=== PATIENT | female | born 1980 | race Hispanic/Latino ===

== ENCOUNTER 2023-03-24 22:31 | Emergency (ER) | payer OTHER ==
[~2023-03-24] VITALS: Ht 162.6 cm; Wt 113.9 kg
[2023-03-24 23:50] LABS: RAPID GROUP A STREP negative (NEGATIVE)
[2023-03-24 23:56] LABS: SARS-CoV-2, RNA, NAAT NEGATIVE SARS CoV-2 (NEGATIVE)
[2023-03-25] LABS: INFLUENZA TYPE A Negative For Type A (NEGATIVE); INFLUENZA TYPE B Negative For Type B (NEGATIVE)
[2023-03-25] MEDS ORDERED: GUAI400T94 PO (00:53)
[2023-03-25] MEDS ORDERED: BENZ200C53 PO (00:53)
[2023-03-25] MEDS ORDERED: ALBU90AE2 IH (00:53)
[2023-03-25] MEDS ORDERED: AZIT250T9 PO (00:56)
[2023-03-25] MEDS ORDERED: BENZONATATE 100 MG CAPSULE PO ONE (01:00)
[2023-03-25] MEDS ORDERED: GUAIFENESIN 600 MG TABLET.ER PO ONE (01:00)
[2023-03-25 01:04] VITALS: BP 126/77; PULSE 92; RESP 18; O2SAT 98
== END 2023-03-25 01:03 | disposition home or self-care (01) ==
LOC: EDH 22:31
DX: J06.9 Acute upper respiratory infection, unspecified (principal); B34.9 Viral infection, unspecified; E11.9 Type 2 diabetes mellitus without complications; Z20.822 Contact with and (suspected) exposure to COVID-19; Z79.899 Other long term (current) drug therapy; Z98.890 Other specified postprocedural states; Z90.49 Acquired absence of other specified parts of digestive tract; Z88.8 Allergy status to other drugs, medicaments and biological substances
CPT/HCPCS: 99283; 87635; 87880; 87804 ×2; C9803

== ENCOUNTER 2024-06-20 12:57 | Emergency (ER) | payer BC ==
[~2024-06-20] VITALS: Ht 162.6 cm; Wt 113.4 kg
[~2024-06-20 12:57] MED LIST: ALBU90AE3 IH; AZIT250T9 PO; BENZ200C53 PO; GUAI400T94 PO
[2024-06-20 13:19] LABS: BASOPHILS # (AUTO) 0.03 K/uL (0.00-0.20); BASOPHILS % (AUTO) 0.4 % (0.0-5.0); EOSINOPHILS # (AUTO) 0.14 K/uL (0.00-0.70); EOSINOPHILS % (AUTO) 1.9 % (0.0-8.0); HEMATOCRIT 37.6 % (36-48); IMMATURE GRANULOCYTE ABSOLUTE 0.05 K/uL (0-1); LYMPHOCYTES # (AUTO) 2.1 K/uL (1.0-4.8); LYMPHOCYTES % (AUTO) 27.5 % (21.0-51.0); MEAN CORPUSCULAR HEMOGLOBIN 28.4 pg (27.0-33.0); MEAN CORPUSCULAR HGB CONC 31.9 g/dL (32.0-36.0); MEAN CORPUSCULAR VOLUME 88.9 fL (79-99); MONOCYTES # (AUTO) 1.1 K/uL (0.1-1.0); MONOCYTES % (AUTO) 14.9 % (3.0-13.0); NEUTROPHILS # (AUTO) 4.1 K/uL (1.8-7.7); NEUTROPHILS % (AUTO) 54.6 % (40.0-77.0); PLATELET COUNT (AUTO) 273 K/uL (130-400); RED BLOOD CELL COUNT(AUTO) 4.23 MIL/uL (4.00-5.50); RED CELL DISTRIBUTION WIDTH 14.7 % (11.0-15.5); WHITE BLOOD COUNT (AUTO) 7.6 K/uL (4.8-10.8)
[2024-06-20 13:26] LABS: CREATININE 1.1 mg/dL (0.5-1.0); POTASSIUM 3.9 mmol/L (3.5-5.1)
[2024-06-20] MEDS: 0.9%NACL 1000ML 1,000 ML IV ONE (13:32)
[2024-06-20] MEDS: acetaMINOPHEN 500 MG TABLET PO ONE (13:33)
--- NOTE | 2024-06-20 14:09 | ERN ---
General Chief Complaint: Abdominal Pain Stated Complaint: UTI PAIN Time Seen by MD: 12:57 Source: patient History of Present Illness Initial Comments 44-YEAR-OLD FEMALE COMING IN WITH LEFT FLANK IN HIS SUPRAPUBIC DISCOMFORT. SHE STATES THAT SHE WAS DIAGNOSED WITH A URINARY TRACT INFECTION ABOUT A WEEK AND A HALF AGO AND SINCE THEN PROGRESSIVELY HAS BEEN HAVING LEFT FLANK PAIN. FEVER NO CHILLS. Allergies: Coded Allergies: lamotrigine (Unverified Allergy, Unknown, 03/24/23) Home Meds Active Scripts Azithromycin (Azithromycin) 250 Mg Tablet, 250 MG PO DAILY, #6 TAB Take 2 now then 1 daily until complete. Prov:LATYOA ARROYO V [facility] 03/25/23 Guaifenesin (Guaifenesin) 400 Mg Tablet, 400 MG PO TID PRN for COUGH, #30 TAB Prov:LATOYA ARROYO V [facility] 03/25/23 Benzonatate (Benzonatate) 200 Mg Capsule, 200 MG PO TID PRN for COUGH for 14 Days, #42 CAP Prov:LATOYA ARROYO V [facility] 03/25/23 Albuterol Sulfate (Proair Digihaler) 90 Mcg Aer.pw.bas, 90 MCG IH TID, #1 INHALER Prov:LATOYA ARROYO V [facility] 03/25/23 Past Medical History Past Medical History: Bipolar, Diabetes-Type II Past Surgical History: Cholecystectomy, BTL Surgical History Other: TUBAL LIGATION Female( History) LMP: May 31, 2024 ROS Dictation CONSTITUTIONAL: NO CHILLS, NO FEVER, NO WEAKNESS, NO DIAPHORESIS, NO MALAISE. HEAD/FACE: NO SIGNS OF TRAUMA. EENT: NO EYE PAIN, NO BLURRED VISION, NO TEARING, NO DOUBLE VISION, NO EAR PAIN, NO EAR DISCHARGE, NO NOSE PAIN, NO NASAL CONGESTION, NO THROAT PAIN, NO THROAT SWELLING, NO MOUTH PAIN. RESPIRATORY: NO COUGH, NO ORTHOPNEA, NO SOB, NO STRIDOR, NO WHEEZING. CARDIOVASCULAR: NO CHEST PAIN, NO EDEMA, NO PALPITATIONS, NO SYNCOPE. GASTROINTESTINAL/ABDOMINAL: NO ABDOMINAL PAIN, NO CONSTIPATION, NO DIARRHEA, NO NAUSEA, NO VOMITING. GENITOURINARY: NO ABNORMAL DISCHARGE, NO DYSURIA, NO FREQUENT URINATION, NO HEMATURIA. NO COMPLAINTS OF PAIN IN THE GENITALS. MUSCULOSKELETAL: NO BACK PAIN, NO GOUT, NO JOINT PAIN, NO JOINT SWELLING, NO MUSCLE PAIN, NO MUSCLE STIFFNESS, NO NECK PAIN. INTEGUMENTARY: NO CHANGE IN COLOR, NO CHANGE IN HAIR/NAILS, NO DRYNESS, NO LESION, NO LUMPS, NO RASH. NEUROLOGICAL/PSYCH: NO ANXIETY, NOT DEPRESSED, NO EMOTIONAL PROBLEM, NO HEADACHE, NO NUMBNESS, NO PRE-EXISTING DEFICIT, NO HISTORY OF SEIZURES, NO TREMORS, NO WEAKNESS. HEMATOLOGIC/LYMPHATIC: NOT ANEMIC, NO HISTORY OF BLOOD CLOTS, NO APPARENT BLEEDING, NO BRUISING, GLANDS NOT SWOLLEN. ALL SYSTEMS NEGATIVE, EXCEPT NOTED. Physical Exam Physical Exam Dictation VITAL SIGNS: REVIEWED. GENERAL APPEARANCE: ALERT, ORIENTED X3, NO ACUTE DISTRESS, OBESE. HEAD AND FACE: NON-TRAUMATIC. EYES: PERRL, PINK CONJUNCTIVAS, EYELID NO TRAUMA, ANTERIOR CHAMBER CLEAR. EARS: PINNAS INTACT AND NO SIGNS OF TRAUMA OR ERYTHEMA. EAR CANALS CLEAR AND N O DISCHARGE. TMS NO ERYTHEMA. NOSE: NO DISCHARGE, NO BLEEDING. OROPHARYNX: MOUTH NORMAL, TEETH NO CARIES, TONGUE PINK. PHARYNX CLEAR, NO ERYTHEMA. TONSILS NO EXUDATES, NO ABSCESSES NOTED. MUCOUS MEMBRANE MOIST. NECK: SUPPLE, NON-TENDER, NO THYROMEGALY, NO MASSES, NO JVD, NO BRUITS. BREAST: DEFERRED. CHEST: NO TENDERNESS, NO CREPITUS, NO PARADOXICAL MOVEMENT, NO RETRACTIONS. LUNGS: CLEAR, WELL-VENTILATED, SYMMETRIC, NO RALES, NO WHEEZING, NO RHONCHI, NO STRIDOR, GOOD BREATH SOUNDS BILATERALLY. HEART: REGULAR RATE, REGULAR RHYTHM, NO MURMUR, NO GALLOPS. VASCULAR: NO PERIPHERAL EDEMA. ABDOMEN: SOFT, POSITIVE BOWEL SOUNDS, NONDISTENDED, NO GUARDING, NONTENDER, NO REBOUND, NO MASSES NO HEPATOMEGALY, NO SPLENOMEGALY, NO BAJWA'S SIGN, NO HERNIAS. RECTAL: DEFERRED. GENITAL: DEFERRED. NEUROLOGICAL: NORMAL SPEECH, GROSS MOTOR FUNCTION INTACT, GROSS SENSORY FUNCTION INTACT. MUSCULOSKELETAL: NECK NONTENDER, FULL RANGE OF MOTION, BACK NONTENDER, FULL RANGE OF MOTION. EXTREMITIES: NONTENDER, FULL RANGE OF MOTION. SKIN: COLOR PINK, DRY, NO TURGOR, NO RASH, NO LACERATIONS, NO ABRASIONS, NO CONTUSIONS. LYMPHATICS: DEFERRED. Results Laboratory and Microbiology Lab and Micro Result Laboratory Tests Test 06/20/24 13:13 06/20/24 14:39 White Blood Count 7.6 K/uL (4.8-10.8) Red Blood Count 4.23 MIL/uL (4.00-5.50) Hemoglobin 12.0 g/dL (12.0-16.0) Hematocrit 37.6 % (36-48) Mean Corpuscular Volume 88.9 fL (79-99) Mean Corpuscular Hemoglobin 28.4 pg (27.0-33.0) Mean Corpuscular Hemoglobin Concent 31.9 g/dL (32.0-36.0) L Red Cell Distribution Width 14.7 % (11.0-15.5) Platelet Count 273 K/uL (130-400) Mean Platelet Volume 10.0 fL (7.5-10.5) Immature Granulocyte % (Auto) 0.7 % (0-1) Neutrophils (%) (Auto) 54.6 % (40.0-77.0) Lymphocytes (%) (Auto) 27.5 % (21.0-51.0) Monocytes (%) (Auto) 14.9 % (3.0-13.0) H Eosinophils (%) (Auto) 1.9 % (0.0-8.0) Basophils (%) (Auto) 0.4 % (0.0-5.0) Neutrophils # (Auto) 4.1 K/uL (1.8-7.7) Lymphocytes # (Auto) 2.1 K/uL (1.0-4.8) Monocytes # (Auto) 1.1 K/uL (0.1-1.0) H Eosinophils # (Auto) 0.14 K/uL (0.00-0.70) Basophils # (Auto) 0.03 K/uL (0.00-0.20) Absolute Immature Granulocyte (auto 0.05 K/uL (0-1) Nucleated Red Blood Cells 0.0 % (0.0-0.19) Sodium Level 138 mmol/L (136-145) Potassium Level 3.9 mmol/L (3.5-5.1) Chloride Level 103 mmol/L (101-111) Carbon Dioxide Level 27 mmol/L (21-32) Blood Urea Nitrogen 8 mg/dL (7-18) Creatinine 1.1 mg/dL (0.5-1.0) H Glomerular Filtration Rate Calc 63 mL/min (>90) Random Glucose 105 mg/dL (70-105) Total Calcium 9.0 mg/dL (8.5-10.1) Urine Color YELLOW (YELLOW) Urine Appearance HAZY (CLEAR) Urine pH 5.5 (5.0-8.0) Urine Specific [place] 1.017 (1.001-1.031) Urine Protein 30 mg/dL (NEGATIVE) H Urine Glucose (UA) NEGATIVE mg/dL (NEGATIVE) Urine Ketones NEGATIVE mg/dL (NEGATIVE) Urine Occult Blood NEGATIVE (NEGATIVE) Urine Nitrate NEGATIVE (NEGATIVE) Urine Bilirubin NEGATIVE mg/dL (NEGATIVE) Urine Urobilinogen 0.2 mg/dL (0.2-1.0) Urine Leukocyte Esterase 75 Catherine/uL (NEGATIVE) H Urine RBC 2-5 /HPF (0-1) H Urine WBC 26-50 /HPF (0-1) H Urine Squamous Epithelial Cells MANY /HPF (0-2) Urine Bacteria MANY /HPF (None Seen) Urine HCG, Qualitative NEGATIVE (NEGATIVE) Labs Reviewed?: Yes MDM MDM: Differential diagnosis: UTI, pyelonephritis, nephrolithiasis, Patient is a 44-year-old female coming in to be evaluated for left flank and suprapubic discomfort. Laboratory workup positive for urinary tract infection patient will be discharged with oral antibiotics. I advised her appropriate follow up with PCP in 1-2 days. ED Course Orders Procedure Category Date Status Time Cbc With Differential LAB 06/20/24 Complete 12:59 Basic Metabolic Panel LAB 06/20/24 Complete 12:59 Urinalysis LAB 06/20/24 Complete W/Microscopic 12:59 ,Urine Test LAB 06/20/24 Complete 12:59 Acetaminophen 500mg PHA 06/20/24 Complete Tab (Tylenol 500mg T 13:00 0.9%Nacl 1000ml (Ns PHA 06/20/24 Complete 1000ml) 13:00 Culture Urine LAMAR 06/20/24 In Process 14:59 Phenazopyridine Hcl PHA 06/20/24 In Process 200 Mg Tab (Pyridium 15:30 Current Medications Medications (Trade) Dose Ordered Sig/Esthela Route PRN Reason Start Time Stop Time Status Last Admin Dose Admin Acetaminophen (TYLenol 500MG TAB) 1,000 mg ONCE ONCE PO 06/20/24 13:00 06/20/24 13:06 DC 06/20/24 13:33 Phenazopyridine HCl (PYRIdium HCL 200 MG TAB) 200 mg ONCE ONCE PO 06/20/24 15:30 06/20/24 15:31 06/20/24 15:27 Sodium Chloride 1,000 ml @ 0 mls/hr ONCE ONCE IV 06/20/24 13:00 06/20/24 13:06 DC 06/20/24 13:32 Vital Signs Date Time Temp Pulse Resp B/P (MAP) Pulse Ox O2 Delivery O2 Flow Rate FiO2 06/20/24 15:27 97.2 91 16 134/60 98 Room Air* 0 21 06/20/24 14:22 97.0 94 18 132/67 98 Room Air* 0 21 06/20/24 13:33 97.9 99 20 145/68 98 Room Air* 0 21 06/20/24 13:16 97.7 94 18 111/82 98 Room Air 0 DX & DISP Disposition: Discharge Departure Impression: Primary Impression: UTI (urinary tract infection) Condition: Stable Scripts Phenazopyridine HCl (Pyridium) 100 Mg Tab 1 TAB PO TID for urinary discomfort for 2 Days, #6 TAB 0 Refills Prov: LEE PEDRAZA MD 06/20/24 Cephalexin Monohydrate (Keflex) 500 Mg Cap 1 CAP PO BID for 10 Days, #20 CAP 0 Refills Prov: LEE PEDRAZA MD 06/20/24 Additional Instructions: FOLLOW-UP WITH PRIMARY CARE PROVIDER IN 1 TO 2 DAYS. TAKE MEDICATIONS DIRECTED HERE IN THE EMERGENCY ROOM. OKAY TO CONTINUE HOME MEDICATIONS UNLESS OTHERWISE DISCUSSED DURING YOUR VISIT IN THE EMERGENCY ROOM TODAY. RETURN TO YOUR NEAREST EMERGENCY ROOM IF SYMPTOMS WORSEN OR IF THERE IS NO IMPROVEMENT. CALL 911 IF YOU NEED IMMEDIATE ASSISTANCE. TAKE TYLENOL [id number] NEEDED AND IF NO CONTRAINDICATIONS ARE PRESENT. INCREASE ORAL HYDRATION. A WOUND CULTURE OR URINE CULTURE WAS ORDERED HERE IN THE EMERGENCY ROOM DEPARTMENT PLEASE FOLLOW-UP WITH PRIMARY CARE PROVIDER AND ADVISE THEM TO GET REPEAT PORTS FROM OUR FACILITY. IF YOU HAD ANY TIM WRAP/SPLINTS THAT WERE APPLIED HERE, PLEASE DO NOT REMOVE THEM UNTIL YOU SEE YOUR PRIMARY CARE OR SPECIALTY. Referrals: Referrals: VISHAL HOOPER (PCP) Time of Disposition: 15:30 LEE PEDRAZA MD Jun 20, 2024 14:09
[2024-06-20 14:56] LABS: HCG,QUALITATIVE URINE NEGATIVE (NEGATIVE)
[2024-06-20 14:58] LABS: BACTERIA,URINE MANY /HPF (None Seen); BILIRUBIN,URINE NEGATIVE (NEGATIVE); COLOR,URINE YELLOW (YELLOW); GLUCOSE, URINE (UA) NEGATIVE (NEGATIVE); KETONES,URINE NEGATIVE (NEGATIVE); LEUKOCYTE ESTERASE ,URINE 75 Leu/uL (NEGATIVE); MUCUS,URINE MANY LPF (None Seen); NITRATE,URINE NEGATIVE (NEGATIVE); OCCULT BLOOD,URINE NEGATIVE (NEGATIVE); PH,URINE 5.5 (5.0-8.0); PROTEIN,URINE 30 mg/dL (NEGATIVE); SQUAMOUS EPITHELIAL CELL,UR MANY /HPF (0-2); UROBILINOGEN,URINE 0.2 mg/dL (0.2-1.0); WBC,URINE 26-50 /HPF (0-1)
[2024-06-20 14:59] LABS: APPEARANCE,URINE HAZY (CLEAR)
[2024-06-20 15:27] VITALS: BP 134/60; PULSE 91; RESP 16; TEMP 97.1; O2SAT 98
[2024-06-20] MEDS: PHENAZOpyridine HCL 200 MG TAB 200 MG TABLET PO ONE (15:27)
[2024-06-20] MEDS ORDERED: PHEN-846 PO (15:31)
[2024-06-20] MEDS ORDERED: CEPH500B PO (15:31)
== END 2024-06-20 15:40 | disposition home or self-care (01) ==
LOC: EDH 12:57
DX: N39.0 Urinary tract infection, site not specified (principal); E11.9 Type 2 diabetes mellitus without complications; Z90.49 Acquired absence of other specified parts of digestive tract; Z98.51 Tubal ligation status
CPT/HCPCS: 99283; 96360; 80048; 85025; 87086; 81001; 81025; 36415; J7030